=== PATIENT | male | born 1950 | race Caucasian/White ===

== ENCOUNTER 2023-09-23 09:14 | Day surgery (SDC) | payer MEDICARE ==
[~2023-09-23 09:14] MED LIST: LIDOCAINE 1% (10MG/ML) FOR IV START INTRADERMA PRN
[2023-09-23] MEDS: LACTATED RINGERS 1,000 ML IV SCH (09:56)
[2023-09-23 10:43] VITALS: RESP 18; TEMP 97
[2023-09-23] MEDS ORDERED: PROPOFOL 10 MG/ML 20 ML VIAL IV ONE (10:59)
--- NOTE | 2023-09-23 11:51 | P.PCN ---
Date of Procedure: 09/23/23 Procedure(s) Performed: BRIEF HISTORY: Patient is a 73-year-old pleasant white male scheduled for an elective colonoscopy as a part of evaluation by history of colon polyps. Last colonoscopy was 5 years ago. PROCEDURE PERFORMED: Colonoscopy with snare polypectomy. PREOPERATIVE DIAGNOSIS: History of colon polyps. IV sedation per Anesthesia. PROCEDURE: After informed consent was obtained, the patient, was brought into the endoscopy unit. IV sedation was administered by Anesthesia under continuous monitoring. Digital rectal examination was normal. Initially the Olympus CF-160 flexible video colonoscope was then inserted in the rectum, gradually advanced into the cecum with severe difficulty because of excessive looping in the transverse colon at the site of ventral hernia. Careful examination was performed as the scope was gradually being withdrawn. Ileocecal valve and the appendiceal orifice were visualized and appeared normal. Prep was excellent. Mucosa of the cecum, ascending colon, transverse colon, appeared normal. In the descending colon there were 3 polyps measuring 5 mm in size 1.5 cm in size which were removed by snare polypectomy. Rest of the descending colon, sigmoid colon, and rectum appeared normal. Retroflexion was performed in the rectum and rectal until hemorrhoids were seen. The patient tolerated the procedure well. IMPRESSION: 5 mm x 2 and 1.5 cm descending colon polyp s/p polypectomy s Small internal hemorrhoids Rest of the colon appeared normal RECOMMENDATIONS: Findings of this examination were discussed with the patient as well as his family. He was advised to follow-up with the biopsy results. If the biopsy presented, he can have repeat colonoscopy in 3 years..
[2023-09-23 12:29] VITALS: BP 118/69; PULSE 57
== END 2023-09-23 12:28 | disposition home or self-care (01) ==
LOC: ORWHC2ENDO 09:14
PROVIDERS: ATTEND Internal Medicine Gastroenterology
DX: Z12.11 Encounter for screening for malignant neoplasm of colon (principal); D12.4 Benign neoplasm of descending colon; N28.9 Disorder of kidney and ureter, unspecified; K64.8 Other hemorrhoids; I10 Essential (primary) hypertension; E78.5 Hyperlipidemia, unspecified; Z90.89 Acquired absence of other organs; Z98.890 Other specified postprocedural states; Z86.010 Personal history of colon polyps; Z79.899 Other long term (current) drug therapy; Z88.5 Allergy status to narcotic agent
CPT/HCPCS: 88305; 45385; J2704